=== PATIENT | male | born 1960 | race Caucasian/White ===

== ENCOUNTER → 2019-05-04 08:58 | Outpatient (CLI) | payer SELFPAY ==
[2017-06-11 00:28] VITALS: BMI 27.6
[2019-05-04 10:03] LABS: Erythrocyte Sedimentation Rate 3 mm/hr (0-20)
[2019-05-04 10:12] LABS: CRP < 2.90 mg/L (0.0-3.0)
[2019-05-08 15:53] LABS: PROEL- A/G Ratio 1.5 (0.7-1.7); PROEL- Alpha-1 Globulin 0.2 g/dL (0.0-0.4); PROEL- Alpha-2 Globulin 0.6 g/dL (0.4-1.0); PROEL- Gamma Globulin 0.9 g/dL (0.4-1.8); PROEL- Globulin, Total 2.7 g/dL (2.2-3.9); PROEL- TOTAL PROTEIN 6.7 g/dL (6.0-8.5); PROELU- Albumin, Urine 28.6 % (.); PROELU- Alpha-1-Globulin,Ur 3.5 % (.); PROELU- Alpha-2-Globulin,Ur 25.4 % (.); PROELU- Beta Globulin, Ur 26.1 % (.); PROELU- Gamma Globulin, Ur 16.5 % (.); Total Protein, Ur 11.9 mg/dL (Not Estab.)
== END ==
PROVIDERS: Family Provider Family Medicine; PCP Family Medicine; Referring Provider Psychiatry & Neurology Neurology; Visit Provider Psychiatry & Neurology Neurology
DX: G62.9 Polyneuropathy, unspecified (principal)
CPT/HCPCS: 36415; 84165; 84166; 85652; 86140

== ENCOUNTER 2021-10-05 08:09 | Outpatient (CLI) | payer SELFPAY ==
[2021-10-05 09:11] LABS: Absolute Lymphocyte Count 1.63 X10^3/uL (0.83-4.51); Absolute Neutrophil Count 3.3 X10^3/uL (2.0-7.7); Basophil# 0.01 X10^3/uL; Basophil% 0.2 % (0-1); Eosinophil# 0.08 X10^3/uL; Eosinophils% 1.4 % (0-5); Hematocrit 45.2 % (40-54); Hemoglobin 15.3 g/dL (13.0-16.5); Lymphocyte # 1.63 X10^3/ul (0.83-4.51); Lymphocyte % 29.3 % (19-41); Mean Corp Hgb Conc 33.8 g/dL (32-36); Mean Corpuscular Hgb 30.7 pg (27.0-32.0); Mean Corpuscular Volume 90.6 fL (80-94); Mean Platelet Vol. 11.1 fl (6.2-12.0); Monocyte# 0.59 X10^3/uL; Monocyte% 10.6 % (0-10); NRBC Flagged by Analyzer 0 % (0-5); Neutrophil # 3.25 X10^3/uL (2.7-7.7); Neutrophil % 58.3 % (47-70); Platelet Count 229 K/mm3 (150-450); RBC Distribution Width CV 12.8 % (11.6-14.6); RBC Distribution Width SD 41.9 fl (35.1-43.9); Red Blood Count 4.99 M/mm3 (4.6-6.2); White Blood Count 5.6 K/mm3 (4.4-11.0)
[2021-10-05 09:59] LABS: AST(SGOT) 18 U/L (15-37); Alanine Aminotransfer ALT/SGPT 31 U/L (16-61); Albumin, Serum 3.8 g/dL (3.2-5.0); Alkaline Phosphatase 51 U/L (45-117); Anion Gap 2 (5-15); BUN 20 mg/dL (7-18); BUN/Creat Ratio 17.5 RATIO (10-20); Bilirubin, Direct 0.17 mg/dL (0.00-0.30); Calcium,Total 9.4 mg/dL (8.5-10.1); Chloride 107 mmol/L (98-107); Cholesterol 156 mg/dL (200); Creatinine, Serum 1.14 mg/dL (0.70-1.30); EST Glomerular Filtration Rate 70 mL/min (>60); Est Glom Filt Rate - Afr Amer 84 mL/min (>60); Globulin 3.3 g/dL (2.2-4.2); Glucose 106 mg/dL (74-106); High Density Lipoprotein 41 mg/dL; Magnesium 2.2 mg/dL (1.6-2.6); Potassium 4.7 mmol/L (3.5-5.1); Protein, Total 7.1 g/dL (6.4-8.2); Sodium Level 139 mmol/L (136-145); Thyroid Stim Hormone (TSH) 2.76 uIU/mL (0.358-3.74); Triglycerides 70 mg/dL; Very Low Density Lipoprotein 14 mg/dL (5-40)
== END 2021-10-05 23:59 | disposition home or self-care (01) ==
LOC: LAB 08:14
PROVIDERS: PCP Student in an Organized Health Care Education/Training Program; Referring Provider Internal Medicine Cardiovascular Disease; Visit Provider Internal Medicine Cardiovascular Disease
DX: I49.49 Other premature depolarization (principal); R53.83 Other fatigue; R06.02 Shortness of breath
CPT/HCPCS: 36415; 80048; 80061; 80076; 83735; 84443; 85025

== ENCOUNTER 2021-10-19 08:25 | Outpatient (CLI) | payer SELFPAY ==
[2021-10-19 09:04] LABS: D-Dimer Quantitative (DVT/PE) 0.54 FEU/ug/m (0.27-0.49)
== END 2021-10-19 23:59 | disposition home or self-care (01) ==
LOC: PAVLAB 08:26
PROVIDERS: PCP Student in an Organized Health Care Education/Training Program; Referring Provider Nurse Practitioner Acute Care; Visit Provider Nurse Practitioner Acute Care
DX: R06.02 Shortness of breath (principal)
CPT/HCPCS: 36415; 85379

== ENCOUNTER 2021-10-27 06:56 | Outpatient (CLI) | payer SELFPAY ==
--- NOTE | 2021-10-27 07:04 | ECHOD_ITS ---
Reason For Study: ARRHYTHMIA Procedure This was a 2D Doppler, Color Flow transthoracic echocardiogram. Exam performed in department. Left Ventricle Normal LV size. Left ventricular systolic function is normal. The estimated ejection fraction is 60 %. No evidence for diastolic dysfunction. No regional wall motion abnormalities noted. Right Ventricle Normal RV size. Normal systolic function. Atria Normal left atrium. Normal right atrium. No doppler evidence for ASD. Mitral Valve There is no mitral annular calcification. Normal mitral valve. Trivial mitral valve insufficiency. Tricuspid Valve Normal tricuspid valve. Trivial tricuspid valve insufficiency. Unable to estimate RV systolic pressure/pulmonary artery pressure due to technically difficult study. Aortic Valve Trisinus/trileaflet aortic valve. Normal aortic valve. Trivial aortic valve insufficiency. Pulmonic Valve The pulmonic valve is not well visualized. Trivial pulmonic valve insufficiency. Great Vessels Borderline enlarged -mildly dilated aortic root. Pericardium/Pleural No pericardial effusion. MMode/2D Measurements & Calculations LVIDd: 4.9 cm IVSd: 0.98 cm Ao root diam: 4.1 cm LVIDs: 3.5 cm LVPWd: 1.0 cm RVDd: 3.5 cm FS: 29.7 % LAV(MOD-bp): 61.7 ml LVAd ap4: 32.1 cm2 SV(MOD-sp4): 66.3 ml LAV(MOD-bp) Indexed: 28.7 ml/m2 LVLd ap4: 8.2 cm LAV(MOD-sp2): 57.2 ml EDV(MOD-sp4): 102.3 ml LAV(MOD-sp4): 59.0 ml EDV(sp4-el): 106.9 ml LVAs ap4: 17.0 cm2 LVLs ap4: 6.7 cm ESV(MOD-sp4): 36.0 ml ESV(sp4-el): 36.6 ml EF(MOD-sp4): 64.8 % EF(sp4-el): 65.7 % SV(sp4-el): 70.3 ml LA A4 area: 20.2 cm2 LA dimension(2D): 3.3 cm RA A4 area: 19.0 cm2 Time Measurements MV dec time: 0.22 sec Doppler Measurements & Calculations MV E max josias: 61.2 cm/sec Lat Peak E' Josias: 10.0 cm/sec Med Peak E' Josias: 7.7 cm/sec MV A max josias: 71.0 cm/sec E/E' lat: 6.1 E/E' med: 8.0 MV E/A: 0.86 Ao V2 max: 118.0 cm/sec LV V1 max: 111.0 cm/sec PA V2 max: 84.3 cm/sec Ao max P.6 mmHg LV V1 max P.9 mmHg ECHO/Echo Complete Interpretation Summary Left ventricular systolic function is normal. The estimated ejection fraction is 60 %. Trivial mitral valve insufficiency. Trivial tricuspid valve insufficiency. Trivial aortic valve insufficiency. Trivial pulmonic valve insufficiency. Borderline enlarged -mildly dilated aortic root Unable to estimate RV systolic pressure/pulmonary artery pressure due to techni norma difficult study. No evidence for diastolic dysfunction. Ordering Physician: Navin Godoy Referring Physician: RYLEE GILLILAND Performed By: Michelle Vo RDCS
--- NOTE | 2021-10-27 11:41 | STRESSREP_ITS ---
Stress Test Report Date: 10/27/2021 Procedure: Exercise tolerance test/imaging study Indications: Shortness of breath; palpitations Consent: Per the patient Procedure: The patient exercised on a Hunter protocol for 9 minutes and 30 completing Stage III and 30 seconds of Stage IV achieving a peak heart rate of 142 bpm (88% predicted maximal heart rate) with a peak blood pressure 160/70 mmHg and a peak MET capacity of 11 METs. The baseline ECG demonstrated normal sinus rhythm; occasional PVCs. The peak exercise ECG demonstrated somatic/motion artifact with no obvious ECG changes. There were occasional PVCs pretest, during exercise, and recovery as well as intermittent episodes of ventricular bigeminy during exercise and recovery. The functional capacity was considered good. There was no complaint of chest discomfort during exercise or recovery. The examination was discontinued secondary to dyspnea. Impression: 1. Technically adequate (percent predicted maximal heart rate greater than 85%) exercise tolerance test 2. Peak exercise ECG with somatic/motion artifact with no obvious ECG changes 3. There were occasional PVCs pretest, during exercise, and recovery as well as intermittent episodes of ventricular bigeminy during exercise and recovery 4. Nuclear images pending Myocardial perfusion imaging study: Technique: The patient was injected with 11.1 mCi of technetium 99m Cardiolite and subsequently rest SPECT Cardiolite nuclear imaging was obtained in the horizontal long, vertical long, and short axis views. The patient exercised on a Hunter protocol for 9 minutes and 30 completing Stage III and 30 seconds of Stage IV achieving a peak heart rate of 142 bpm (88% predicted maximal heart rate) with a peak blood pressure 160/70 mmHg and a peak MET capacity of 11 METs. The patient was injected with 33.3 mCi of technetium 99m Cardiolite and subsequently stress SPECT Cardiolite nuclear imaging was obtained in the horizontal long, vertical long, and short axis views. A gated Cardiolite study at peak stress was obtained. Interpretation: Rest and stress SPECT Cardiolite nuclear imaging status post realignment, normalization, and attenuation correction, demonstrates the appearance of relative uniform tracer uptake and myocardial perfusion appearing within normal limits. There is end systolic thickening and brightening. The gated Cardiolite study demonstrates myocardial thickening and inward wall motion. The reported LVEF is 62%. Impression: 1. Rest and stress SPECT Cardiolite nuclear imaging demonstrate relative uniform tracer uptake and myocardial perfusion appearing within normal limits. 2. The gated Cardiolite study reports an LVEF of 62%. This note was generated with [employer] software. It may contain incorrect words, spelling, and punctuation that were not noted in checking the note before signing.
== END 2021-10-27 23:59 | disposition home or self-care (01) ==
PROVIDERS: PCP Student in an Organized Health Care Education/Training Program; Visit Provider Internal Medicine Cardiovascular Disease
DX: I49.49 Other premature depolarization (principal); R53.83 Other fatigue; R06.02 Shortness of breath
CPT/HCPCS: 78452; 93017; 93225; 93226; 93306; A9500; A4216

== ENCOUNTER → 2021-11-30 | Outpatient (CLI) | payer SELFPAY | END | disposition home or self-care (01) | PROVIDERS: PCP Student in an Organized Health Care Education/Training Program; Referring Provider Internal Medicine Cardiovascular Disease; Visit Provider Internal Medicine Cardiovascular Disease | DX: I49.3 Ventricular premature depolarization (principal) | CPT/HCPCS: 93225; 93226 ==

== ENCOUNTER 2023-02-24 14:00 | Outpatient (RCR) | payer SELFPAY ==
--- NOTE | 2023-02-04 07:50 | HP.PTEVAL_ITS ---
Patient's Visit Information Visit Information Visit Information: LOLI PEREZ is a 62 year old M referred to Physical Therapy by Self Referred with a diagnosis of PES CAVUS. Date of Evaluation: 02/04/23 Physical Therapist: Justin Coe PT, Cert MDT, OCS Visit Plan Frequency: 1 visit Plan: Patient to be fitted for fabricated orthotics Subjective Subjective: This 62 y/o male presents physical therapy with orthotics. Patient has numbness in feet most of the time in toes. Patient has paresthesia/tingling . 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 Patient has pes cavus . Patient has 2 orthotics which has worn. Patient MD plans to EMG testing. Said okay orthotics. Patient symptoms worse when on feet. Patient goals to have less symptoms SOCIAL: Self Employed VOACTION: [employer] Objective Objective: POSTURE: Pes Cavus GAIT: normal jovany NEURO: c/o paresthesia toes light touch intact AROM: dorsiflexion 0 degrees .planta flexion 60 degrees ,inversion 40 degrees ,eversion 5 degrees MMT: 5/5 Goals Goal 1:: Patient to be fitted for Fabricated orthotics Goal Time Frame: 1 visit Rehabilitation Potential Physical Therapy Diagnosis: Patient has pes cavus benefit from orthotics and paresthesia in feet /toes Rehabilitation Potential: Good Anticipated Interventions Patient/Client Instruction: Educate patient on: Condition and Plan of Care For the Purpose of:: Other Other: orthotics Text: Thank you for the opportunity to evaluate your patient. For Medicare and Medicare HMO plans, please review the plan of care and approve it. It will need to be FAXED BACK to us at [phone] for Medicare purposes. For Medicare only, by signing this I certify the plan of care. Please let me know if there are questions or concerns regarding this plan of care. Physician Signature: Date:
--- NOTE | 2023-02-24 14:24 | HP.PTDCSUM ---
Discharge Summary D/C summary: It has been my pleasure to treat LOLI PEREZ referred by Self Referred, with the diagnosis of PES CAVUS for a total of 2 visit(s). Discharge Date: 02/24/23 Please see the following information for a summary of their discharge status. Subjective Subjective: No c/os Objective Objective/Function: PROVIDED ORTHOTICS TO ENSURE PROVIDE FITTING Goals Goal 1:: Patient to be fitted for Fabricated orthotics Goal Progress: Goal Met Plan Plan: D/C D/C Information d/c sentence: If there are questions or concerns regarding this patient's physical therapy, please feel free to call me at [phone]. Thank you for the referral of this patient. Sincerely, Justin Coe, PT, Cert MDT, OCS
== END 2023-02-24 19:00 | disposition home or self-care (01) ==
LOC: PT 14:00
PROVIDERS: PCP Student in an Organized Health Care Education/Training Program
DX: Q66.70 Congenital pes cavus, unspecified foot (principal)
CPT/HCPCS: 97162; 97763

== ENCOUNTER → 2023-12-08 | Outpatient (CLI) | payer SELFPAY ==
--- NOTE | 2023-12-08 14:55 | CT_ITS ---
STUDY: CT MAXILLOFACIAL SINUSES REASON FOR EXAM: Male, 63 years old. NASAL POLYP/CHRONIC SINUSITIS/NASAL CONGESTION RADIATION DOSAGE (If Supplied By Facility): CTDIvol = ( 33.06 ) mGy, DLP = ( 829.72 ) mGycm TECHNIQUE: The patient was scanned in a multi detector CT scanner. High resolution axial imaging was performed without the administration of intravenous contrast material. Sagittal and coronal images were reconstructed. Individualized dose optimization techniques were used for this CT. COMPARISON: None. FINDINGS: There is prominence of the lingular tonsils more prominent on the right side. FRONTAL SINUSES: Mucosal thickening of the left frontal sinus. ETHMOIDAL SINUSES: Opacification of the left ethmoid sinuses. MAXILLARY SINUSES: There is opacification of the left maxillary sinus. There is thinning of the medial wall of the left maxillary sinus. SPHENOIDAL SINUSES: Normal aeration, without mucosal inflammatory disease. The right ostiomeatal complex is obliterated due to the soft tissue proliferation. Normal bilateral middle turbinates. Normal bilateral inferior turbinates. Normal midline nasal septum. There is soft tissue density in the left nasal passage suggestive of polyposis. The visualized osseous structures are normal. The visualized bilateral orbital contents are normal. CT/Sinus/Facial Bone IMPRESSION: Prominence of the lingular tonsils more prominent on the right side. Soft tissue prominence in the nasal passage with opacification of the left maxillary, left ethmoid and left frontal sinus. Electronically Signed: Mandeep Viera MD at 11:08 EDT ,
== END | disposition home or self-care (01) ==
LOC: CT 14:50
PROVIDERS: PCP Student in an Organized Health Care Education/Training Program; Referring Provider Otolaryngology; Visit Provider Otolaryngology
DX: J33.0 Polyp of nasal cavity (principal); J32.9 Chronic sinusitis, unspecified; R09.81 Nasal congestion
CPT/HCPCS: 70486

== ENCOUNTER → 2023-12-27 | Outpatient (CLI) | payer SELFPAY ==
--- NOTE | 2023-12-27 08:08 | EKG12_ITS ---
Test Reason : PREOP Blood Pressure : / mmHG Vent. Rate : 056 BPM Atrial Rate : 056 BPM P-R Int : 156 ms QRS Dur : 088 ms QT Int : 432 ms P-R-T Axes : 031 -18 016 degrees QTc Int : 416 ms Sinus bradycardia Increased R/S ratio in V1, consider early transition or posterior infarct Abnormal ECG Confirmed by Timbo Vasquez ([id number]), film or videotape editor ZO CALLAHAN ([id number]) on 12/28/2023 8:55:36 AM Referred By: Alex Floyd Confirmed By:Timbo Vasquez
== END | disposition home or self-care (01) ==
PROVIDERS: PCP Student in an Organized Health Care Education/Training Program; Referring Provider Otolaryngology; Visit Provider Otolaryngology
DX: Z01.818 Encounter for other preprocedural examination (principal)
CPT/HCPCS: 93005

== ENCOUNTER → 2024-01-17 | Outpatient (CLI) | payer SELFPAY ==
--- NOTE | 2024-01-17 | NASAL_PTH ---
PATIENT: LOLI PEREZ LOC: [facility] U#:[id number] AGE/SX: 63/M ROOM: RE01/17/[address]: Dr. Alex Floyd MD : 1960 BED: DIS: 01/17/2024 SPEC #: [id number] RECD: 01/17/24 15:31 STATUS: MALLORY SHANELLE #: [id number] JUAN: 01/17/24 00:[address]: Alex Floyd DEPT: SURGICAL PATHOLOGY RECD BY: Zoraida Glez ENTERED: 01/18/24 09:05 SP TYPE: NASAL SPEC OTHR DR: Dr. Timbo Black DO Tissues: A - Ethmoid sinus, NOS B - Ethmoid sinus, NOS Procedures: Decalcification bone/plaque Surgery Specimen Level IV HEADER OPERATION: Ethmoidectomy, antrostomy, turbinate resection PRE-OP DIAGNOSIS: Left maxillary antrostomy and tissue removal, left anterior ethmoidectomy, bilateral submucous resection of inferior turbinates TISSUE SUBMITTED: A- Left sinus contents, B- Left maxillary sinus contents MICROSCOPIC DIAGNOSIS A. Left sinus contents, curettings: Consistent with Schneiderian polyp, exophytic type. Chronic sinusitis. Fragments of bone with no pathologic change. See comment. B. Right sinus contents, excision: Fragments of Schneiderian polyp, inflamed. See comment. ARAM/ 01/23/2024 COMMENT A. Immunohistochemistry ([id number]) supports the above diagnosis. AFB and GMS stains with matched controls were used in the evaluation of this case. B. Immunohistochemistry ([id number]) supports the above diagnosis. AFB and GMS stains with matched controls were used in the evaluation of this case and are negative for acid fast bacilli and fungal organisms. MICROSCOPIC DESCRIPTION Slides are reviewed. GROSS DESCRIPTION A. Received in fixative is one container labeled with the patient's name and designated Left sinus contents. The specimen consists of multiple irregular and polypoid fragments of gritty olivas tissue measuring in aggregate 2.5 x 2.0 x 0.2cm. The specimen is submitted in its entirety in one cassette after decalcification. B. Received in fixative is one container labeled with the patient's name and designated Left maxillary sinus contents. The specimen consists of multiple irregular fragments of light olivas soft tissue measuring in aggregate 6.0 x 3.0 x 0.2cm. The specimen is submitted in its entirety in two cassettes. ARAM/ 01/18/2024 TC:2 CPT:97754c4
--- NOTE | 2024-01-17 | IMM_PTH ---
PATIENT: LOLI PEREZ LOC: [facility] U#:[id number] AGE/SX: 63/M ROOM: RE01/17/[address]: Dr. Alex Floyd MD : 1960 BED: DIS: 01/17/2024 SPEC #: [id number] RECD: 01/23/24 13:01 STATUS: MALLORY REQ #: [id number] JUAN: 01/17/24 00:[address]: Alex Floyd DEPT: IMMUNOHISTOCHEMISTRY RECD BY: Guilherme Hernández ENTERED: 01/23/24 13:02 SP TYPE: IMMUNO OTHR DR: Dr. Timbo Black DO Tissues: A - Ethmoid sinus, NOS B - Ethmoid sinus, NOS Procedures: P53 (initial) KI-67 (add) P16 (add) P53 (add) KI-67 (initial) PHYSICIAN & INSTITUTION [place] [id number] SPECIMEN INFORMATION: Tissue Source: A- Left sinus contents, B- Right sinus contents Clinical Info: Left maxillary antrostomy and tissue removal, left anterior ethmoidectomy, bilateral submucous resection of inferior turbinates Specimen Number: [id number] A&B CPT code: [id number] METHODOLOGY: Deparaffinized sections of prefer/formalin-fixed tissue or PAP/DQ stained slides are incubated with monoclonal/polyclonal antibodies/oligonucleotide probes. Localization is made via biotin free immunoperoxidase method. Appropriate controls are performed and reacted as expected. Results on target cell population are indicated in the following table: RESULTS: ANTIBODY / CLONE RESULT Block A Ki-67 (30-9) positive, low P16 (E6H4) positive, patchy P53 (DO-7) positive, wild type pattern Block B Ki-67 (30-9) positive, low P16 (E6H4) positive, patchy P53 (DO-7) negative, null pattern These tests were developed and their performance characteristics determined by [facility]. They may not have been cleared or approved by the U.[place]. Food and Drug Administration. The FDA has determined that such clearance or approval is not necessary. The above immunohistochemical/dualISH markers are ordered and reviewed by the Pathologist. INTERPRETATION: A. Left sinus contents, ethmoidectomy: No evidence of dysplasia. B. Right sinus contents, ethmoidectomy: No evidence of dysplasia. ARAM/ 01/24/2024
== END | disposition home or self-care (01) ==
LOC: LABSPEC 15:38
PROVIDERS: PCP Student in an Organized Health Care Education/Training Program; Referring Provider Otolaryngology; Visit Provider Otolaryngology
DX: J34.3 Hypertrophy of nasal turbinates (principal); J33.0 Polyp of nasal cavity; R09.81 Nasal congestion; J32.9 Chronic sinusitis, unspecified
CPT/HCPCS: 88305; 88311; 88341; 88342